=== PATIENT | male | born 1985 | race Caucasian/White ===

== ENCOUNTER 2017-06-11 06:14 | Emergency (ER) | payer BC ==
[~2017-06-11] VITALS: Ht 194.3 cm; Wt 127.0 kg
[~2017-06-11 06:14] MED LIST: AMOX875T PO; CLR10 PO; MULT-506 PO
[2017-06-11 06:17] VITALS: TEMP 36.4; Ht 194.3 cm; Wt 127.0 kg
[2017-06-11] MEDS ORDERED: KETOROLAC TROMETHAMINE 30 MG/ML VIAL IV STA (06:42)
[2017-06-11] MEDS ORDERED: DiphenhydrAMINE HCL 50 MG/ML VIAL IV STA (06:42)
[2017-06-11] MEDS ORDERED: SODIUM CHLORIDE 0.9% 500ML 500 ML IV STA (06:42)
[2017-06-11] MEDS ORDERED: PROCHLORPERAZINE 5 MG/ML 2 ML VIAL IV STA (06:42)
--- NOTE | 2017-06-11 06:56 | EMERGENCY ROOM VISIT NOTE ---
History Report prepared by Kerry: Josephine Gonsalez Under the Supervision of: Dr. Rafaela Guardado M.D. First contact with patient: 06:39 Chief Complaint: HEADACHE Stated Complaint: HEADACHE, DIZZY History of Present Illness The patient is a 31 year old male who presents to the Emergency Room with complaints of persistent headache for two days RN PLASTICS. He notes the headache was bad yesterday morning. He notes that he went to an urgent care and was prescribed medication for sinusitis. He is currently taking Augmentin x 1 day. He notes severe pain above the left eye, nausea, and dizziness. He states the headache began two days ago, though worsened this morning. He currently rates his pain a 9/10 in severity. He notes that he has been sick with cold-like symptoms for one week. He notes pain is worsened with eye movement. He denies sensitivity to light. He denies any history of tobacco use. He denies any vomiting, chest pain, and shortness of breath. Source of History: patient Onset: two days RN PLASTICS Position: head Symptom Intensity: 9/10 Quality: ache Timing: other (persistent) Modifying Factors (Worsening): other (worsens with eye movement) Associated Symptoms: + headache (radiating to left eye), + nausea, No chest pain, No SOB, No vomiting Note: He notes left eye pain and dizziness. Review of Systems See HPI for pertinent positives & negatives. A total of 10 systems reviewed and were otherwise negative. Past Medical & Surgical Medical Problems: (1) Hemorrhoids (2) Rectal bleeding Surgical Problems: (1) Hx of appendectomy Family History FH: cancer FH: diabetes mellitus FH: kidney disease Social History Smoking Status: Never Smoker Marital Status: Housing Status: lives with family Occupation Status: employed Current/Historical Medications Scheduled Amoxicillin & Pot Clavulanate (Augmentin 875-125 mg), 1 TAB PO BID Loratadine (Claritin), 10 MG PO DAILY Multivitamin (Multivitamin), 1 TAB PO DAILY Pseudoephedrine Hcl (Sudafed Nasal Decongestan), 2 TAB PO Q6 Allergies Coded Allergies: No Known Allergies (Unverified , 06/11/17) Physical Exam Vital Signs Date Time Temp Pulse Resp B/P (MAP) Pulse Ox O2 Delivery O2 Flow Rate FiO2 06/11/17 08:21 75 16 132/82 95 Room Air 06/11/17 06:17 36.4 83 18 140/86 95 Room Air Physical Exam .Vital signs reviewed. General: Well-appearing in some discomfort. HEENT: No scleral icterus, PERRLA, neck supple. Atraumatic. No meningeal signs. Mild tenderness over the left supraorbital ridge. Cardiovascular: Regular rate and rhythm, no extra sounds. Pulmonary: Clear to auscultation bilaterally, normal work of breathing. Abdomen: Soft, nontender, nondistended, positive bowel sounds. Musculoskeletal: Atraumatic, no peripheral edema. Neurologic: Patient awake alert and oriented x 3, full strength in all 4 extremities. Cranial nerves 2 through 12 grossly intact. Skin: Warm, dry, no rash Medical Decision & Procedures ER Provider Diagnostic Interpretation: Radiology results as stated below per my review and radiologist interpretation: HEAD CT NONCONTRAST CT DOSE: 537.48 mGy.cm HISTORY: Left frontal headache, tender TECHNIQUE: Multiaxial CT images of the head were performed without the use of intravenous contrast. Automated exposure control was utilized for this study. A dose lowering technique was utilized adhering to the principles of ALARA. Comparison: None. Findings: Complete opacification of the frontal sinuses and anterior ethmoid air cells. The mastoid air cells are clear. The calvarium and skull base are intact. The calvarium and skull base are intact. The ventricles and sulci are within normal limits. There is no mass, hematoma, midline shift, or acute infarct. Impression: No acute intracranial abnormality. Complete opacification the frontal sinuses and anterior ethmoid air cells consistent with sinusitis. Electronically signed by: Juan Neumann M.D. 06/11/2017 7:23 AM Dictated Date/Time: 06/11/2017 7:19 AM Laboratory Results 06/11/17 06:55 Red Blood Count 5.23, Mean Corpuscular Volume 86.4, Mean Corpuscular Hemoglobin 31.7, Mean Corpuscular Hemoglobin Concent 36.7, Mean Platelet Volume 9.9, Neutrophils (%) (Auto) 69.0, Lymphocytes (%) (Auto) 22.2, Monocytes (%) (Auto) 7.6, Eosinophils (%) (Auto) 0.6, Basophils (%) (Auto) 0.3, Neutrophils # (Auto) 4.69, Lymphocytes # (Auto) 1.51, Monocytes # (Auto) 0.52, Eosinophils # (Auto) 0.04, Basophils # (Auto) 0.02 06/11/17 06:55 Test 06/11/17 06:55 White Blood Count 6.80 K/uL (4.8-10.8) Red Blood Count 5.23 M/uL (4.7-6.1) Hemoglobin 16.6 g/dL (14.0-18.0) Hematocrit 45.2 % (42-52) Mean Corpuscular Volume 86.4 fL (80-100) Mean Corpuscular Hemoglobin 31.7 pg (25-34) Mean Corpuscular Hemoglobin Concent 36.7 g/dl (32-36) Platelet Count 180 K/uL (130-400) Mean Platelet Volume 9.9 fL (7.4-10.4) Neutrophils (%) (Auto) 69.0 % Lymphocytes (%) (Auto) 22.2 % Monocytes (%) (Auto) 7.6 % Eosinophils (%) (Auto) 0.6 % Basophils (%) (Auto) 0.3 % Neutrophils # (Auto) 4.69 K/uL (1.4-6.5) Lymphocytes # (Auto) 1.51 K/uL (1.2-3.4) Monocytes # (Auto) 0.52 K/uL (0.11-0.59) Eosinophils # (Auto) 0.04 K/uL (0-0.5) Basophils # (Auto) 0.02 K/uL (0-0.2) RDW Standard Deviation 39.3 fL (36.4-46.3) RDW Coefficient of Variation 12.4 % (11.5-14.5) Immature Granulocyte % (Auto) 0.3 % Immature Granulocyte # (Auto) 0.02 K/uL (0.00-0.02) Anion Gap 7.0 mmol/L (3-11) Est Creatinine Clear Calc Drug Dose 173.5 ml/min Estimated GFR () 129.8 Estimated GFR (Non- 112.0 BUN/Creatinine Ratio 16.9 (10-20) Calcium Level 9.0 mg/dl (8.5-10.1) Total Bilirubin 1.1 mg/dl (0.2-1) Direct Bilirubin 0.2 mg/dl (0-0.2) Aspartate Amino Transf (AST/SGOT) 26 U/L (15-37) Alanine Aminotransferase (ALT/SGPT) 54 U/L (12-78) Alkaline Phosphatase 66 U/L (45-117) Total Protein 7.6 gm/dl (6.4-8.2) Albumin 4.0 gm/dl (3.4-5.0) Laboratory results per my review. Medications Administered Medications (Trade) Dose Ordered Sig/Taylor Route Start Time Stop Time Status Last Admin Dose Admin Ketorolac Tromethamine (Toradol Inj) 30 mg NOW STAT IV 06/11/17 06:42 06/11/17 06:45 DC 06/11/17 07:04 30 MG Prochlorperazine Edisylate (Compazine Inj) 10 mg NOW STAT IV 06/11/17 06:42 06/11/17 06:45 DC 06/11/17 07:04 10 MG Diphenhydramine HCl (Benadryl Inj) 25 mg NOW STAT IV 06/11/17 06:42 06/11/17 06:45 DC 06/11/17 07:04 25 MG Sodium Chloride 500 ml @ 999 mls/hr Q31M STAT IV 06/11/17 06:42 06/11/17 07:12 DC 06/11/17 06:42 999 MLS/HR ED Course 0640: Past medical records reviewed. The patient was evaluated in room B10. A complete history and physical examination was performed. 0642: Ordered Sodium Chloride 500 ml @ 999 mls/hr IV, Benadryl 25 mg IV, Compazine 10 mg IV, and Toradol 30 mg IV 0800: I reassessed the patient at this time. He is feeling better and resting comfortably. I discussed the results and treatment plan with the patient. I answered all pertaining questions that he had. He expressed understanding and verbalized agreement. The patient will be discharged home. Medical Decision Differential diagnoses: Intracranial hemorrhage, intracranial mass, migraine headache, tension headache , sinusitis, meningitis This patient was evaluated and appeared to be in some discomfort. IV access was obtained and laboratory work was drawn. The patient was placed on the property assessment monitor and found to be in a sinus rhythm. He was given IV Toradol, IV Compazine and IV Benadryl for his discomfort. CT scan of the head was performed and reveals complete opacification of the bilateral frontal sinuses. The patient has been on Augmentin which would be the treatment of choice. Patient has no elevation of the white blood cell count, he is afebrile. He was advised to use Tylenol and ibuprofen as needed for pain. He will begin Sudafed for congestion. Patient was advised to seek ENT consultation and follow-up. He was provided Dr. Martinez's information. Patient was advised to return to the ER for worsening of symptoms or any medical concerns. Medication Reconcilliation Current Medication List: was personally reviewed by me Blood Pressure Screening Patient's blood pressure: Elevated blood pressure Blood pressure disposition: Elevated BP felt to be situational Impression Primary Impression: Frontal sinusitis Scribe Attestation The scribe's documentation has been prepared under my direction and personally reviewed by me in its entirety. I confirm that the note above accurately reflects all work, treatment, procedures, and medical decision making performed by me. Departure Information Dispostion Home / Self-Care Prescriptions Pseudoephedrine Hcl (SUDAFED NASAL DECONGESTAN) 30 Mg Tab 2 TAB PO Q6 for 7 Days, #56 TAB Prov: Rafaela Guardado M.D. 06/11/17 Referrals No Doctor, Assigned (PCP) Andrew Hicks D.O., Yi How, M.D. Forms HOME CARE DOCUMENTATION FORM, IMPORTANT VISIT INFORMATION Patient Instructions My [facility] Additional Instructions Diagnosis: Frontal sinusitis Ibuprofen 600 mg every 6 hours as needed for pain with food. Continue your Augmentin as prescribed. Sudafed 60 mg every 4-6 hours as needed for congestion. Call Dr. Martinez of ENT for follow-up within the next 2 weeks. Return to the ER immediately for worsening of headache, fever, neck stiffness or any medical concerns.
[2017-06-11 07:09] LABS: BASO % 0.3 %; BASO ABS # 0.02 K/uL (0-0.2); EOS % 0.6 %; EOS ABS # 0.04 K/uL (0-0.5); HEMATOCRIT 45.2 % (42-52); HEMOGLOBIN 16.6 g/dL (14.0-18.0); IG# 0.02 K/uL (0.00-0.02); LYMPH % 22.2 %; LYMPH ABS # 1.51 K/uL (1.2-3.4); MEAN CELL VOLUME 86.4 fL (80-100); MEAN CORPUSCULAR HEMOGLOBIN 31.7 pg (25-34); MEAN CORPUSCULAR HGB CONC 36.7 g/dl (32-36); MEAN PLATELET VOLUME 9.9 fL (7.4-10.4); MONO % 7.6 %; MONO ABS # 0.52 K/uL (0.11-0.59); NEUT ABS # 4.69 K/uL (1.4-6.5); PLATELET COUNT 180 K/uL (130-400); RED CELL DISTRIBUTION WIDTH CV 12.4 % (11.5-14.5); RED CELL DISTRIBUTION WIDTH SD 39.3 fL (36.4-46.3)
--- NOTE | 2017-06-11 07:24 | DIAGNOSTIC IMAGING REPORT ---
HEAD CT NONCONTRAST CT DOSE: 537.48 mGy.cm HISTORY: Left frontal headache, tender TECHNIQUE: Multiaxial CT images of the head were performed without the use of intravenous contrast. Automated exposure control was utilized for this study. A dose lowering technique was utilized adhering to the principles of ALARA. Comparison: None. Findings: Complete opacification of the frontal sinuses and anterior ethmoid air cells. The mastoid air cells are clear. The calvarium and skull base are intact. The calvarium and skull base are intact. The ventricles and sulci are within normal limits. There is no mass, hematoma, midline shift, or acute infarct. Impression: No acute intracranial abnormality. Complete opacification the frontal sinuses and anterior ethmoid air cells consistent with sinusitis. Electronically signed by: Juan Neumann M.D. 06/11/2017 7:23 AM Dictated Date/Time: 06/11/2017 7:19 AM
[2017-06-11 07:32] LABS: CREATININE 0.92 mg/dl (0.60-1.40); POTASSIUM 3.9 mmol/L (3.5-5.1)
[2017-06-11 07:35] LABS: TOTAL PROTEIN 7.6 gm/dl (6.4-8.2)
[2017-06-11] MEDS ORDERED: PSEU30TA3 PO (08:13)
[2017-06-11 08:21] VITALS: BP 132/82; PULSE 75; O2SAT 95
== END 2017-06-11 09:12 | disposition home or self-care (01) ==
LOC: C.EDB 06:15
DX: J32.1 Chronic frontal sinusitis (principal); Z80.9 Family history of malignant neoplasm, unspecified; Z83.3 Family history of diabetes mellitus; Z84.1 Family history of disorders of kidney and ureter